=== PATIENT | female | born 1930 | race Caucasian/White ===

== ENCOUNTER 2017-03-01 09:52 | Emergency (ER) | payer MEDICARE ==
[2017-03-01] MEDS ORDERED: Acetaminophen 500 MG TAB ONE (10:08)
== END 2017-03-01 10:45 | disposition home or self-care (01) ==
LOC: NAV ERS 09:52
DX: B34.9 Viral infection, unspecified (principal); J01.90 Acute sinusitis, unspecified; I10 Essential (primary) hypertension; Z79.82 Long term (current) use of aspirin; Z79.899 Other long term (current) drug therapy
CPT/HCPCS: 99284